=== PATIENT | female | born 1995 | race African-American/Black ===

== ENCOUNTER 2016-06-16 21:31 | Emergency (ER) | payer BC ==
[~2016-06-16] VITALS: Ht 152.4 cm; Wt 59.0 kg
[2016-06-16] MEDS ORDERED: IBUPROFEN 600MG TABLET PO ONE (23:45)
[2016-06-17 01:00] VITALS: BP 120/69
== END 2016-06-17 01:00 | disposition home or self-care (01) ==
LOC: ER 21:33
DX: M79.645 Pain in left finger(s) (principal); J45.909 Unspecified asthma, uncomplicated
CPT/HCPCS: 29130; 73130; 81025; 99284

== ENCOUNTER 2017-03-15 14:56 | Emergency (ER) | payer BC, MEDICAID ==
[~2017-03-15] VITALS: Ht 162.6 cm; Wt 59.0 kg
[2017-03-15] MEDS ORDERED: IBUPROFEN 600MG TABLET PO ONE (19:30)
[2017-03-15 21:41] VITALS: BP 115/74
== END 2017-03-15 21:41 | disposition home or self-care (01) ==
LOC: ER 14:56
DX: S82.831A Other fracture of upper and lower end of right fibula, initial encounter for closed fracture (principal); F17.200 Nicotine dependence, unspecified, uncomplicated; J45.909 Unspecified asthma, uncomplicated; X50.1XXA Overexertion from prolonged static or awkward postures, initial encounter; Y93.89 Activity, other specified; Y92.89 Other specified places as the place of occurrence of the external cause; Y99.8 Other external cause status
CPT/HCPCS: 29515; 73610; 99284

== ENCOUNTER 2018-12-03 18:23 | Emergency (ER) | payer MEDICAID ==
[~2018-12-03] VITALS: Ht 154.9 cm; Wt 60.0 kg
[2018-12-03 19:05] VITALS: BP 126/64
== END 2018-12-03 21:14 | disposition home or self-care (01) ==
LOC: ER 18:23
DX: T85.848A Pain due to other internal prosthetic devices, implants and grafts, initial encounter (principal); G89.18 Other acute postprocedural pain; Y82.8 Other medical devices associated with adverse incidents; Y92.89 Other specified places as the place of occurrence of the external cause
CPT/HCPCS: 73060; 99283

== ENCOUNTER 2019-03-19 18:48 | Emergency (ER) | payer BC ==
[~2019-03-19] VITALS: Ht 160 cm; Wt 50.0 kg
[2019-03-19 18:59] VITALS: BP 144/87
[2019-03-20] MEDS ORDERED: IBUPROFEN 800MG TABLET PO ONE (00:30)
[2019-03-20] MEDS ORDERED: ACETAMINOPHEN 500MG TABLET PO ONE (00:30)
== END 2019-03-20 01:07 | disposition home or self-care (01) ==
LOC: ER 18:48
DX: J11.1 Influenza due to unidentified influenza virus with other respiratory manifestations (principal); R50.9 Fever, unspecified
CPT/HCPCS: 99283

== ENCOUNTER 2023-08-31 20:10 | Emergency (ER) | payer BC, MEDICAID ==
[~2023-08-31] VITALS: Ht 162.6 cm; Wt 70.0 kg
[2023-08-31 20:19] VITALS: O2SAT 98
[2023-08-31 20:56] VITALS: BP 114/64; PULSE 130; RESP 19; TEMP 98.3
[2023-08-31] MEDS: ACETAMINOPHEN 325MG TABLET PO ONE (21:34)
[2023-08-31] MEDS ORDERED: TOPUD MT (22:57)
== END 2023-08-31 23:14 | disposition left against medical advice (07) ==
LOC: ER 20:10
DX: O26.891 Other specified pregnancy related conditions, first trimester (principal); S93.402A Sprain of unspecified ligament of left ankle, initial encounter; F41.9 Anxiety disorder, unspecified; J45.909 Unspecified asthma, uncomplicated; F20.9 Schizophrenia, unspecified; Z3A.08 8 weeks gestation of pregnancy; W18.39XA Other fall on same level, initial encounter; Y93.89 Activity, other specified; Y92.89 Other specified places as the place of occurrence of the external cause; Y99.8 Other external cause status
CPT/HCPCS: 81025; 99283